=== PATIENT | male | born 1945 | race Caucasian/White ===

== ENCOUNTER → 2021-03-22 08:24 | Outpatient (CLI) | payer MEDICARE, OTHER, SELFPAY ==
--- NOTE | 2021-03-22 08:29 | DI.MRI.S_ITS ---
PROCEDURE: MR CERVICAL SPINE WO CON INDICATIONS: BILATERAL ARM WEAKNESS TECHNIQUE: Noncontrast sagittal T1 spin echo and T2 fast spin echo, sagittal STIR, foraminal oblique sagittal T2 fast spin echo, and axial gradient echo or T2 fast spin echo through the cervical spine. COMPARISON: None. FINDINGS: Image quality: This examination is limited by involuntary motion artifact. Alignment and Curvature: There is normal bony alignment. Bone Marrow: Marrow demonstrates normal overall signal. Spinal Cord: Visualized spinal cord has normal size and signal. No cerebellar tonsillar herniation. Paraspinous Soft Tissues: No paravertebral masses. Prevertebral soft tissues are normal in thickness. C2-C3: The disc height is well-preserved. Loss of disc signal is seen at this level. A mild degree of generalized disc osteophyte complex is seen. Mild facet joint hypertrophy is seen. Moderate bilateral neural foraminal narrowing is seen. No significant central canal narrowing is seen. C3-C4: Mild loss of disc height is seen. Loss of disc signal is seen. Moderate generalized disc osteophyte complex is seen. Uncovertebral joint hypertrophy is seen at this level. Mild to moderate facet hypertrophy is seen. There is moderate to severe bilateral neural foraminal narrowing seen, left worse than right. Moderate central canal narrowing is seen. There is associated mass effect upon the ventral spinal cord. C4-C5: Moderate loss of disc height is seen. Loss of disc signal is seen. Moderate generalized disc osteophyte complex is seen. There is a central disc osteophyte protrusion seen. Uncovertebral joint hypertrophy is seen at this level. Moderate facet joint hypertrophy is seen. Moderate to severe bilateral neural foraminal narrowing is seen. Moderate to severe central canal narrowing can be seen. There is associated mass effect upon the ventral spinal cord. C5-C6: Moderate loss of disc height is seen. Loss of disc signal is seen. Moderate disc osteophyte complex is seen, with a central/left disc osteophyte protrusion. Uncovertebral joint hypertrophy is seen at this level. At least moderate facet hypertrophy is seen. There is moderate to severe bilateral neural foraminal narrowing seen. Moderate to severe central canal narrowing is seen, with associated mass effect upon the ventral spinal cord. C6-C7: At least moderate loss of disc height and disc signal can be seen. Moderate generalized disc osteophyte complex is seen. There is a central disc osteophyte protrusion seen. Moderate facet hypertrophy is seen, left worse than right. There is moderate to severe bilateral neural foraminal narrowing seen. At least moderate central canal narrowing is seen. There is associated mass effect upon the ventral spinal cord. C7-T1: Moderate loss of disc height is seen. Loss of disc signal is seen. At least moderate disc osteophyte complex is seen. There is a central disc osteophyte protrusion seen. Moderate facet joint hypertrophy is seen. Moderate to severe bilateral neural foraminal narrowing is seen. Mild to moderate central canal narrowing can be seen. 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 Dictated by: Deion Dick M.D. on 03/22/2021 at 8:38 Approved by: Deion Dick M.D. on 03/22/2021 at 8:42
== END ==
PROVIDERS: PCP Internal Medicine; Referring Provider Internal Medicine; Visit Provider Internal Medicine
DX: R29.898 Other symptoms and signs involving the musculoskeletal system (principal); M47.812 Spondylosis without myelopathy or radiculopathy, cervical region
CPT/HCPCS: 72141

== ENCOUNTER → 2024-06-01 08:24 | Outpatient (CLI) | payer MEDICARE, OTHER, SELFPAY ==
--- NOTE | 2024-06-01 08:27 | DI.RAD.S_ITS ---
PROCEDURE: FL BARIUM SWALLOW W SPEECH INDICATIONS: EARLY SATIETY COMPARISON: None. TECHNIQUE: Examination was conducted in conjunction with speech pathology per standard protocol. In the lateral projection, filming was performed of the patient swallowing. AP projection filming may also be performed with patient swallowing. COMPARISON: FINDINGS: Function: The oral preparatory phase appears normal, with proper containment. The subsequent oral propulsive phase, pharyngeal phase, and esophageal phase of swallowing also appear normal with all proffered substances. No laryngotracheal penetration or aspiration. No pathologic vallecular pooling. Morphology: No cricopharyngeal bar is identified. No cervical esophageal webs. No Zenker's diverticulum. No strictures. Normal passage of a barium tablet. IMPRESSION: No aspiration. Please see separately dictated speech pathologist's report. Dictated by: Evert Gupta M.D. on 06/01/2024 at 17:03 Approved by: Evert Gupta M.D. on 06/01/2024 at 17:05
--- NOTE | 2024-06-01 12:17 | ST.SWALLOW ---
Visit Care Team Role Provider Type Bethel Doran MD Primary Care Provider Non-Staff Specialty: Internal Medicine Address: [address] [place] [address] [address], [place], [address] Email: Family Provider Specialty: Address: Phone: Fax: Email: Holly Escamilla MD Attending Provider Non-Staff Referring Provider Specialty: Family Practice Address: [address] [place], [place] [address], [place], [address] Email: Modified Barium Swallow Study ROR ENGINEER Modified Barium Swallow Study Start: 06/01/24 11:19 Freq: Status: Active Protocol: Document 06/01/24 11:32 LNK (Rec: 06/01/24 12:16 LNK [id number]) Modified Barium Swallow Study Total Time Visit Start Time 09:00 Visit Stop Time 09:30 Total Visit Minutes 30 Referral Referring Physician Holly Benitez MD Reason for Referral Dysphagia Setting Setting Outpatient Care Patient Information Identification Type Name,Date of Patient History Pt was seen for a Modified Barium Swallow Study at the referral of Dr Benitez. According to the pt, he has been having difficulty swallowing during meals. He described having a sensation that foods/liquids do not go beyond mid chest. He stated he has regurgitates undigested foods. Pt reported a very sensitive gag reflex and PND, which may also trigger emisis. Pt denied having GERD but uses TUMS Subjective Observations Pt was seated in the fluoroscopy chair with directions and procedures described for him. He indicated he understood and agreed to proceed. Patient Positioning Position View Lat-A/P Imaging Lateral View Textures Administered Trials Presented Thin Liquid via Spoon (IDDSI 0 ),Thin Liquid via Cup (IDDSI 0 ),Extremely Thick Liquid via Spoon (IDDSI 4),Regular (IDDSI 7) Barium Tablet Yes The IDDSI Framework Protocol: IDDSI.1 Oral Impairment Source: The Modified Barium Swallow Impairment Profile (MBSImP??) Lip Closure Interlabial escape; no progression to anterior lip Tongue Control During Bolus Hold Cohesive bolus between tongue to palatal seal Bolus Preparation/Mastication Timely & efficient chewing & mashing Bolus Transport/Lingual Motion Brisk tongue motion Oral Residue Complete oral clearance, Residue collection on oral structures Location Lateral sulci Initiation of Pharyngeal Swallow Bolus head in valleculae Additional Oral Impairment Observations *Oral phase, OME and DKS were observed to be WNL. *Dentition natural and in good hygiene *Mastication observed with rotary chew pattern. *Good bolus formation, control and AP transition. Pharyngeal Impairment Source: The Modified Barium Swallow Impairment Profile (MBSImP??) Soft Palate Elevation No bolus between soft palate & pharyngeal wall Laryngeal Elevation Comp.sup.move.thyroid cart.w/ comp.approx.arytenoids to epiglot petiole Anterior Hyoid Excursion Complete anterior movement Epiglottic Movement Complete inversion Laryngeal Vestibular Closure Complete; no air/contrast in laryngeal vestibule Pharyngeal Stripping Wave Present - complete Pharyngoesophageal Segment Opening Complete distention & complete duration; no obstruction of flow Tongue Base Retraction No contrast between tongue base & posterior pharyngeal wall Pharyngeal Residue Collection of residue within/ on pharyngeal structures Location Diffuse (>3 areas) Additional Pharyngeal Impairment *CP bar noted Observations *Frequent gagging, especially with extremely thick liquid and solid boluses and the barium tablet. No emisis. *Pharyngeal phase observed to be WNL A/P View Textures Administered Trials Presented Thin Liquid via Cup (IDDSI 0) The IDDSI Framework Protocol: IDDSI.1 A/P View Observations Pharyngeal Contraction Complete Esophageal Clearance Upright Position Complete clearance; esophageal coating Esophageal Function WFL Additional A-P Observations *Thin liquid trial and barium tablet cleared to the stomach in a timely manner Clinical Impressions Dysphagia Type WNL Findings Pt's swallow appeared to be WNL for all phases (oral, pharyngeal, esophageal). pt remarked that if he is standing and eating, he does not have the sensation of foods sticking. He noted that if he gets the sticking/ globus sensation during a meal , he will stand, which relieves the discomfort. Patient Appropriate for Therapy No Recommendations Diet Comments No diet change recommended
== END ==
LOC: RAD 08:25
PROVIDERS: PCP Internal Medicine; Referring Provider Family Medicine; Visit Provider Family Medicine
DX: R68.81 Early satiety (principal)
CPT/HCPCS: 74230; 92611